=== PATIENT | male | born 1980 | race Two or more races ===

== ENCOUNTER 2016-11-16 13:40 | Emergency (ER) | payer SELFPAY ==
[~2016-11-16] VITALS: Ht 177.8 cm; Wt 83.9 kg
[2016-11-16 13:47] VITALS: BP 128/52
[2016-11-16] MEDS ORDERED: IBUPROFEN 600 MG TABLET PO ONE ×2 (14:30→15:17)
== END 2016-11-16 16:29 | disposition home or self-care (01) ==
LOC: ER 13:45
DX: S16.1XXA Strain of muscle, fascia and tendon at neck level, initial encounter (principal); S29.012A Strain of muscle and tendon of back wall of thorax, initial encounter; V49.49XA Driver injured in collision with other motor vehicles in traffic accident, initial encounter; Y93.89 Activity, other specified; Y92.89 Other specified places as the place of occurrence of the external cause; Y99.9 Unspecified external cause status
CPT/HCPCS: 71010; 72050; 72074; 72128; 99284; A4606; Z7610